=== PATIENT | male | born 1975 | race Caucasian/White ===

== ENCOUNTER → 2021-11-29 | Emergency (ER) | payer OTHER ==
[~2021-11-29] VITALS: Ht 177.8 cm; Wt 68.0 kg
[~2021-11-29] MED LIST: ATIVAN2 M1 PO; DEPAKOTE ER500 MG PO; HALDOL DEC100 MG/1 M; HALOPERIDOL; KLONOPIN1 MG/TAB PO; KLONOPIN2 MG/TAB PO; RISPERDAL2 MG PO; TORADOL60 MG IM
== END | disposition left against medical advice (07) ==
LOC: ER 18:58
DX: Z53.21 Procedure and treatment not carried out due to patient leaving prior to being seen by health care provider (principal)

== ENCOUNTER → 2021-11-29 | Emergency (ER) | payer OTHER ==
[~2021-11-29] VITALS: Ht 177.8 cm; Wt 22.7 kg
== END | disposition left against medical advice (07) ==
LOC: ER 11:12
DX: Z53.21 Procedure and treatment not carried out due to patient leaving prior to being seen by health care provider (principal)

== ENCOUNTER 2021-11-30 10:13 | Emergency (ER) | payer OTHER ==
[~2021-11-30] VITALS: Ht 177.8 cm; Wt 68.0 kg
[~2021-11-30 10:13] MED LIST changes: -TORADOL60 MG IM
[2021-11-30] MEDS ORDERED: TORADOL60 MG IM (10:25)
== END 2021-12-01 02:07 | disposition designated cancer center or children's hospital (05) ==
LOC: ER 10:13
DX: M54.2 Cervicalgia (principal); F41.9 Anxiety disorder, unspecified; R45.851 Suicidal ideations

== ENCOUNTER 2021-12-12 06:43 | Emergency (ER) | payer OTHER ==
[~2021-12-12] VITALS: Ht 177.8 cm; Wt 68.0 kg
== END 2021-12-12 11:01 | disposition home or self-care (01) ==
LOC: ER 06:43
DX: M54.59 Other low back pain (principal); M62.830 Muscle spasm of back; Z59.00 Homelessness unspecified

== ENCOUNTER 2021-12-12 19:34 | Emergency (ER) | payer OTHER ==
[~2021-12-12] VITALS: Ht 177.8 cm; Wt 68.0 kg
== END 2021-12-13 00:20 | disposition home or self-care (01) ==
LOC: ER 19:34
DX: G47.00 Insomnia, unspecified (principal); F41.8 Other specified anxiety disorders; Z59.00 Homelessness unspecified

== ENCOUNTER → 2021-12-12 | Emergency (ER) | payer OTHER ==
[~2021-12-12] VITALS: Ht 177.8 cm; Wt 68.0 kg
[~2021-12-12] MED LIST changes: +TORADOL60 MG IM
== END | disposition left against medical advice (07) ==
LOC: ER 01:26
DX: Z53.21 Procedure and treatment not carried out due to patient leaving prior to being seen by health care provider (principal)

== ENCOUNTER → 2021-12-14 | Emergency (ER) | payer OTHER ==
[~2021-12-14] VITALS: Ht 177.8 cm; Wt 68.0 kg
== END | disposition home or self-care (01) ==
LOC: ER 06:21
DX: Z53.29 Procedure and treatment not carried out because of patient's decision for other reasons (principal)